=== PATIENT | female | born 1970 | race American Indian/Alaskan Native ===

== ENCOUNTER 2021-02-17 12:57 | Emergency (ER) | payer SELFPAY ==
[2021-02-17 13:10] VITALS: BP 129/89
--- NOTE | 2021-02-17 13:14 | Event Note ---
ED Screening Note Date of service: 02/17/21 Time: 13:14 ED Screening Note: Patient complains of chest pain x2 days Has a pacemaker in place States past history of diabetes This initial assessment/diagnostic orders/clinical plan/treatment(s) is/are subject to change based on patients health status, clinical progression and re- assessment by fellow clinical providers in the ED. Further treatment and workup at subsequent clinical providers discretion. Patient/guardian urged not to elope from the ED as their condition may be serious if not clinically assessed and managed. Initial orders include: Labs EKG Chest x-ray
--- NOTE | 2021-02-17 13:53 | XRay Report ---
CHEST 2 VIEWS INDICATION: chest pain. COMPARISON: None FINDINGS: Support devices: 2-lead pacemaker device appears in good position. Heart: Within normal limits. Lungs/pleura: No acute air space or interstitial disease. No pneumothorax. Additional findings: No obvious bony abnormality on x-ray. IMPRESSION: No acute findings. Signer Name: Kevin Jorge Jr, MD Signed: 02/17/2021 1:49 PM Workstation Name: [id number]
[2021-02-17 14:37] LABS: Basophils % (Auto) 0.7 % (0.0-1.8); Eosinophils # (Auto) 0.2 K/mm3 (0.0-0.4); Hematocrit 34.4 % (30.3-42.9); Hemoglobin 11.8 gm/dl (10.1-14.3); Lymphocytes # (Auto) 1.7 K/mm3 (1.2-5.4); Lymphocytes % (Auto) 42.4 % (13.4-35.0); Mean Corpuscular HGB Conc 34 % (30-34); Mean Corpuscular Volume 89 fl (79-97); Monocytes # (Auto) 0.2 K/mm3 (0.0-0.8); Monocytes % (Auto) 5.4 % (0.0-7.3); Platelet Count 272 K/mm3 (140-440); Red Blood Count 3.89 M/mm3 (3.65-5.03)
[2021-02-17 14:56] LABS: Alanine Aminotransferase 20 units/L (7-56); Albumin 4.2 g/dL (3.9-5); Blood Urea Nitrogen 12 mg/dL (7-17); Hemolysis Index 12
[2021-02-17 15:11] LABS: BUN/Creatinine Ratio 24
--- NOTE | 2021-02-17 17:21 | Electrocardiograph Report ---
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
== END 2021-02-17 21:15 | disposition left against medical advice (07) ==
LOC: ED 12:57
DX: R07.89 Other chest pain (principal); Z53.21 Procedure and treatment not carried out due to patient leaving prior to being seen by health care provider
CPT/HCPCS: 36415; 71046; 80053; 84484; 85025; 93005

== ENCOUNTER 2021-03-14 11:47 | Emergency (ER) | payer SELFPAY ==
[2021-03-14 12:41] VITALS: BP 136/74
--- NOTE | 2021-03-14 13:02 | Event Note ---
ED Screening Note Date of service: 03/14/21 Time: 13:00 ED Screening Note: Patient presents today with complaints of left-sided chest pain. Patient states that she has been having this chest pain for "a while". He states that she was seen here for this chest pain in the past but did not follow-up. She did had a pacemaker placed last year due to sinus bradycardia. Of [place] or coronary artery disease. She states that she had a heart cath in 2011 and it was normal. She has diabetes but it diet controlled. She also has sleep apnea and she is status post gastric sleeve. She also has a history of anxiety and depression. This initial assessment/diagnostic orders/clinical plan/treatment(s) is/are subject to change based on patients health status, clinical progression and re- assessment by fellow clinical providers in the ED. Further treatment and workup at subsequent clinical providers discretion. Patient/guardian urged not to elope from the ED as their condition may be serious if not clinically assessed and managed. Initial orders include: Cardiac work-up
--- NOTE | 2021-03-14 13:52 | XRay Report ---
CHEST 2 VIEWS INDICATION / CLINICAL INFORMATION: Chest Pain. FINDINGS: SUPPORT DEVICES: None. HEART / MEDIASTINUM: No significant abnormality. LUNGS / PLEURA: No significant pulmonary or pleural abnormality. No pneumothorax. ADDITIONAL FINDINGS: No significant additional findings. IMPRESSION: 1. No acute findings. Signer Name: Mikey Swift MD Signed: 03/14/2021 1:47 PM Workstation Name: [id number]
[2021-03-14 14:01] LABS: Alanine Aminotransferase 16 units/L (7-56); Albumin 4.1 g/dL (3.9-5); Basophils % (Auto) 0.7 % (0.0-1.8); Blood Urea Nitrogen 11 mg/dL (7-17); Eosinophils # (Auto) 0.2 K/mm3 (0.0-0.4); Eosinophils % (Auto) 3.7 % (0.0-4.3); Hematocrit 36.5 % (30.3-42.9); Hemoglobin 12.4 gm/dl (10.1-14.3); Hemolysis Index 4; Lymphocytes # (Auto) 1.4 K/mm3 (1.2-5.4); Lymphocytes % (Auto) 33.9 % (13.4-35.0); Mean Corpuscular HGB Conc 34 % (30-34); Mean Corpuscular Volume 90 fl (79-97); Monocytes # (Auto) 0.3 K/mm3 (0.0-0.8); Monocytes % (Auto) 7.6 % (0.0-7.3); Platelet Count 296 K/mm3 (140-440); Red Blood Count 4.08 M/mm3 (3.65-5.03)
[2021-03-14 14:07] LABS: BUN/Creatinine Ratio 16
[2021-03-14 14:12] LABS: INR 1.06 (0.87-1.13)
--- NOTE | 2021-03-14 17:38 | Emergency Department Report ---
ED General Adult HPI - General Chief complaint: Chest Pain Stated complaint: NOT FEELING WELL Time Seen by Provider: 03/14/21 16:57 Source: patient Mode of arrival: Ambulatory Limitations: No Limitations - History of Present Illness Initial comments: Patient is a 51-year-old female presents emergency room with complaints of muscle cramping to her left chest that has been ongoing for a year. She states that she has had the symptoms since she had a pacemaker placed. She denies any complications with her pacemaker. She denies any palpitations, fever, cough, nausea, vomiting, diarrhea, shortness of breath, leg swelling, hemoptysis, pleuritic chest pain, syncope. She states that her family recently became homeless which has been causing some anxiety. She denies any SI or HI. - Related Data Previous Rx's Medication Instructions Recorded Last Taken Type Naproxen [EC-Naprosyn] 500 mg PO BID PRN #14 tablet. 03/14/21 Unknown Rx methOCARBAMOL [Robaxin TAB] 500 mg PO BID PRN #14 tab 03/14/21 Unknown Rx Allergies Allergy/AdvReac Type Severity Reaction Status Date / Time chocolate flavor AdvReac Rash Verified 03/14/21 12:41 ED Review of Systems ROS: Stated complaint: NOT FEELING WELL Other details as noted in HPI Comment: All other systems reviewed and negative ED Past Medical Hx - Past Medical History Hx CVA: Yes (memory loss) Hx Arthritis: Yes Additional medical history: pacemaker, sleep apnea, anxiety (been admitted to psych facilities), neuropathy - Surgical History Additional Surgical History: GB, hyst - Social History Smoking Status: Never Smoker Substance Use Type: None - Medications Home Medications: Home Medications Medication Instructions Recorded Confirmed Last Taken Type Naproxen [EC-Naprosyn] 500 mg PO BID PRN #14 tablet. 03/14/21 Unknown Rx methOCARBAMOL [Robaxin TAB] 500 mg PO BID PRN #14 tab 03/14/21 Unknown Rx ED Physical Exam - General Limitations: No Limitations General appearance: alert, in no apparent distress - Head Head exam: Present: atraumatic, normocephalic - Eye Eye exam: Present: normal appearance - ENT ENT exam: Present: mucous membranes moist - Respiratory Respiratory exam: Present: normal lung sounds bilaterally, other (healed surgical incision, no signs of infection). Absent: respiratory distress, wheezes, rales, rhonchi, stridor, chest wall tenderness, accessory muscle use, decreased breath sounds, prolonged expiratory - Cardiovascular Cardiovascular Exam: Present: regular rate, normal rhythm, normal heart sounds. Absent: systolic murmur, diastolic murmur, rubs, gallop - Neurological Exam Neurological exam: Present: alert, oriented X3 - Psychiatric Psychiatric exam: Present: normal affect, normal mood - Skin Skin exam: Present: warm, dry, intact ED Course Vital Signs 03/14/21 03/14/21 12:39 18:47 Temperature 98.6 F Pulse Rate 87 84 Respiratory 18 18 Rate Blood Pressure 136/74 O2 Sat by Pulse 99 100 Oximetry ED Medical Decision Making - Lab Data Result diagrams: 03/14/21 13:20 03/14/21 13:20 Lab Results 03/14/21 03/14/21 03/14/21 Range/Units 13:20 13:20 13:20 WBC 4.3 L (4.5-11.0) K/mm3 RBC 4.08 (3.65-5.03) M/mm3 Hgb 12.4 (10.1-14.3) gm/dl Hct 36.5 (30.3-42.9) % MCV 90 (79-97) fl MCH 30 (28-32) pg MCHC 34 (30-34) % RDW 13.0 L (13.2-15.2) % Plt Count 296 (140-440) K/mm3 Lymph % (Auto) 33.9 (13.4-35.0) % [place] % (Auto) 7.6 H (0.0-7.3) % Eos % (Auto) 3.7 (0.0-4.3) % Baso % (Auto) 0.7 (0.0-1.8) % Lymph # (Auto) 1.4 (1.2-5.4) K/mm3 [place] # (Auto) 0.3 (0.0-0.8) K/mm3 Eos # (Auto) 0.2 (0.0-0.4) K/mm3 Baso # (Auto) 0.0 (0.0-0.1) K/mm3 Seg Neutrophils % 54.1 (40.0-70.0) % Seg Neutrophils # 2.3 (1.8-7.7) K/mm3 PT 13.6 (12.2-14.9) Sec. INR 1.06 (0.87-1.13) APTT 28.0 (24.2-36.6) Sec. Sodium 139 (137-145) mmol/L Potassium 3.5 L (3.6-5.0) mmol/L Chloride 101.7 (98-107) mmol/L Carbon Dioxide 29 (22-30) mmol/L Anion Gap 12 mmol/L BUN 11 (7-17) mg/dL Creatinine 0.7 (0.6-1.2) mg/dL Estimated GFR > 60 ml/min BUN/Creatinine Ratio 16 % Glucose 87 (65-100) mg/dL Calcium 9.0 (8.4-10.2) mg/dL Total Bilirubin 1.10 (0.1-1.2) mg/dL AST 25 (5-40) units/L ALT 16 (7-56) units/L Alkaline Phosphatase 82 (35-129) units/L Troponin T < 0.010 (0.00-0.029) ng/mL Total Protein 7.6 (6.3-8.2) g/dL Albumin 4.1 (3.9-5) g/dL Albumin/Globulin Ratio 1.2 % Lipase 29 (13-60) units/L /09/24 Range/Units 16:45 WBC (4.5-11.0) K/mm3 RBC (3.65-5.03) M/mm3 Hgb (10.1-14.3) gm/dl Hct (30.3-42.9) % MCV (79-97) fl MCH (28-32) pg MCHC (30-34) % RDW (13.2-15.2) % Plt Count (140-440) K/mm3 Lymph % (Auto) (13.4-35.0) % [place] % (Auto) (0.0-7.3) % Eos % (Auto) (0.0-4.3) % Baso % (Auto) (0.0-1.8) % Lymph # (Auto) (1.2-5.4) K/mm3 [place] # (Auto) (0.0-0.8) K/mm3 Eos # (Auto) (0.0-0.4) K/mm3 Baso # (Auto) (0.0-0.1) K/mm3 Seg Neutrophils % (40.0-70.0) % Seg Neutrophils # (1.8-7.7) K/mm3 PT (12.2-14.9) Sec. INR (0.87-1.13) APTT (24.2-36.6) Sec. Sodium (137-145) mmol/L Potassium (3.6-5.0) mmol/L Chloride (98-107) mmol/L Carbon Dioxide (22-30) mmol/L Anion Gap mmol/L BUN (7-17) mg/dL Creatinine (0.6-1.2) mg/dL Estimated GFR ml/min BUN/Creatinine Ratio % Glucose (65-100) mg/dL Calcium (8.4-10.2) mg/dL Total Bilirubin (0.1-1.2) mg/dL AST (5-40) units/L ALT (7-56) units/L Alkaline Phosphatase (35-129) units/L Troponin T < 0.010 (0.00-0.029) ng/mL Total Protein (6.3-8.2) g/dL Albumin (3.9-5) g/dL Albumin/Globulin Ratio % Lipase (13-60) units/L - EKG Data EKG shows normal: sinus rhythm, axis, intervals, QRS complexes, ST-T waves Rate: normal - Radiology Data Radiology results: report reviewed Ordering Physician: DAISHA FELDER Date of Service: 03/14/21 Procedure(s): XR chest routine 2V Accession Number(s): [id number] cc: DAISHA FELDER Fluoro Time In Minutes: CHEST 2 VIEWS INDICATION / CLINICAL INFORMATION: Chest Pain. FINDINGS: SUPPORT DEVICES: None. HEART / MEDIASTINUM: No significant abnormality. LUNGS / PLEURA: No significant pulmonary or pleural abnormality. No pneumothorax. ADDITIONAL FINDINGS: No significant additional findings. IMPRESSION: 1. No acute findings. Signer Name: Mikey Swift MD Signed: 03/14/2021 1:47 PM Workstation Name: [id number] Transcribed By: BC Dictated By: Mikey Swift MD Electronically Authenticated By: Mikey Swift MD Signed Date/Time: 03/14/211346 DD/ 46 TD/TT: - Medical Decision Making Patient is a 51-year-old female presents emergency room with complaints of muscle cramping to her left chest that has been ongoing for a year. She states that she has had the symptoms since she had a pacemaker placed. She denies any complications with her pacemaker. She denies any palpitations, fever, cough, nausea, vomiting, diarrhea, shortness of breath, leg swelling, hemoptysis, pl euritic chest pain, syncope. She states that her family recently became homeless which has been causing some anxiety. She denies any SI or HI. Vitals are stable. EKG is within normal limits. Labs are stable. Troponin is negative x2. Chest x-ray: 1. No acute findings. Heart score is 2, symptoms have been ongoing for a year, she describes it as muscle cramping, do not suspect ACS at this time. Charge nurse was able to place patient in a intermediate, she states that she is feeling much better and much more relieved. Patient will be referred to outpatient cardiology. Patient given prescription for naproxen and Robaxin. Advised patient please take medication as prescribed as needed. follow up with a primary care doctor. follow up with a postdoctoral fellow. follow up with the [facility]. return to the emergency room for any new or worsening symptoms. Critical care attestation.: If time is entered above; I have spent that time in minutes in the direct care of this critically ill patient, excluding procedure time. ED Disposition Clinical Impression: Chronic chest pain, Anxiety Disposition: DC-01 TO HOME OR SELFCARE Is pt being admited?: No Does the pt Need Aspirin: No Condition: Stable Instructions: Nonspecific Chest Pain, Adult, Managing Anxiety, Adult Additional Instructions: please take medication as prescribed as needed. follow up with a primary care do ctor. follow up with a postdoctoral fellow. follow up with the [facility]. return to the emergency room for any new or worsening symptoms. Prescriptions: Naproxen [EC-Naprosyn] 500 mg PO BID PRN #14 tablet.dr MAE Reason: pain methOCARBAMOL [Robaxin TAB] 500 mg PO BID PRN #14 tab PRN Reason: pain Referrals: FABRIZIO ARGUELLO MD [Primary Care Provider] - 2-3 Days [facility] [Provider Group] - 2-3 Days ANJUM BURLESON MD [Staff Physician] [facility]3 Days Time of Disposition: 17:38 Print Language: FAROESE Heart Score - HEART Score History: Slightly suspicious EKG: Normal Age: 45-65 Risk factors: 1-2 risk factors Troponin: < normal limit HEART Score: 2 - EKG Read Time Time EKG Completed: 13:00 EKG Read Time: 13:10
--- NOTE | 2021-03-16 11:49 | Electrocardiograph Report ---
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
== END 2021-03-14 18:47 | disposition home or self-care (01) ==
LOC: ED 11:47
DX: F41.9 Anxiety disorder, unspecified (principal); R07.89 Other chest pain; M19.90 Unspecified osteoarthritis, unspecified site; Z79.899 Other long term (current) drug therapy; Z91.018 Allergy to other foods; Z98.890 Other specified postprocedural states; Z86.73 Personal history of transient ischemic attack (TIA), and cerebral infarction without residual deficits
CPT/HCPCS: 36415; 71046; 80053; 83690; 84484; 85025; 85610; 85730; 93005

== ENCOUNTER 2021-05-22 16:22 | Emergency (ER) | payer SELFPAY ==
--- NOTE | 2021-05-22 17:41 | Emergency Department Report ---
ED Chest Pain HPI - General Chief Complaint: Dyspnea/Respdistress Stated Complaint: HEART PAIN (PACEMAKER)LT/SHOULDER Time Seen by Provider: 05/22/21 17:09 Source: patient Mode of arrival: Ambulatory Limitations: No Limitations - History of Present Illness Initial Comments: 51-year-old female, history of pacemaker placement, CVA with memory loss as only residual deficit, denies presents to ED with chest pain and leg swelling x1 week. Patient states she has swelling in bilateral lower extremities, left greater than right. She also reports pain to both lower extremities. Patient also reports some sharp chest pain, left-sided, intermittent. She denies any aggravating or alleviating factors. She denies any shortness of breath. Patient denies any tobacco or drug use. MD Complaint: chest pain -: week(s) (1) Onset: during rest Pain Location: left chest Pain Radiation: none Severity: moderate Severity scale (0 -10): 5 Quality: sharp Improves With: nothing Worsens With: nothing re: denies: nausea, vomting, diaphoresis, dyspnea Other Symptoms: leg swelling. denies: cough, fever - Related Data Previous Rx's Medication Instructions Recorded Last Taken Type Naproxen [EC-Naprosyn] 500 mg PO BID PRN #14 tablet. 03/14/21 Unknown Rx methOCARBAMOL [Robaxin TAB] 500 mg PO BID PRN #14 tab 03/14/21 Unknown Rx Furosemide [Lasix] 20 mg PO QDAY 5 Days #5 tablet 05/22/21 Unknown Rx Allergies Allergy/AdvReac Type Severity Reaction Status Date / Time chocolate flavor AdvReac Rash Verified 05/22/21 18:13 Heart Score - HEART Score History: Slightly suspicious EKG: Normal Age: 45-65 Risk factors: 1-2 risk factors Troponin: < normal limit HEART Score: 2 - EKG Read Time Time EKG Completed: 16:35 EKG Read Time: 17:09 ED Review of Systems ROS: Stated complaint: HEART PAIN (PACEMAKER)LT/SHOULDER Other details as noted in HPI Comment: All other systems reviewed and negative Constitutional: denies: chills, fever Respiratory: denies: cough, shortness of breath Cardiovascular: chest pain, edema ED Past Medical Hx - Past Medical History Previous Medical History?: Yes Hx CVA: Yes (memory loss) Hx Arthritis: Yes Additional medical history: pacemaker, sleep apnea, anxiety (been admitted to psych facilities), neuropathy - Surgical History Past Surgical History?: Yes Additional Surgical History: GB, hyst - Social History Smoking Status: Never Smoker Substance Use Type: None - Medications Home Medications: Home Medications Medication Instructions Recorded Confirmed Last Taken Type Naproxen [EC-Naprosyn] 500 mg PO BID PRN #14 tablet. 03/14/21 Unknown Rx methOCARBAMOL [Robaxin TAB] 500 mg PO BID PRN #14 tab 03/14/21 Unknown Rx Furosemide [Lasix] 20 mg PO QDAY 5 Days #5 tablet 05/22/21 Unknown Rx ED Physical Exam - General Limitations: No Limitations General appearance: alert, in no apparent distress - Head Head exam: Present: atraumatic, normocephalic - Eye Eye exam: Present: normal appearance, EOMI - ENT ENT exam: Present: mucous membranes moist - Neck Neck exam: Present: normal inspection - Respiratory Respiratory exam: Present: normal lung sounds bilaterally. Absent: respiratory distress - Cardiovascular Cardiovascular Exam: Present: regular rate, normal rhythm - GI/Abdominal GI/Abdominal exam: Present: soft. Absent: distended, tenderness - Extremities Exam Extremities exam: Present: other (1+ edema, nonpitting, bilateral lower legs) - Neurological Exam Neurological exam: Present: alert, oriented X3 - Psychiatric Psychiatric exam: Present: normal affect, normal mood - Skin Skin exam: Present: warm, dry, intact, normal color ED Course Vital Signs 05/22/21 05/22/21 05/22/21 16:43 17:04 17:15 Temperature 99.1 F Pulse Rate 69 60 Respiratory 20 13 Rate Blood Pressure 135/84 Blood Pressure 141/59 [Right] O2 Sat by Pulse 98 100 98 Oximetry 05/22/21 05/22/21 05/22/21 17:31 17:45 18:31 Temperature Pulse Rate 60 60 60 Respiratory 15 22 16 Rate Blood Pressure 140/62 121/68 128/67 Blood Pressure [Right] O2 Sat by Pulse 100 100 100 Oximetry 05/22/21 05/22/21 05/22/21 18:45 19:07 19:50 Temperature 98.2 F Pulse Rate 74 76 Respiratory 18 18 Rate Blood Pressure 121/56 121/56 Blood Pressure 121/65 [Right] O2 Sat by Pulse 95 96 97 Oximetry ED Medical Decision Making - Lab Data Result diagrams: 05/22/21 17:44 05/22/21 17:44 - EKG Data -: EKG Interpreted by Mi EKG shows normal: sinus rhythm, axis, intervals, QRS complexes, ST-T waves Rate: normal - EKG Data Interpretation: no acute changes - Radiology Data Radiology results: report reviewed, image reviewed - Medical Decision Making 51-year-old female presents to ED with bilateral lower extremity swelling and chest pain x1 week. Labs are unremarkable, including D-dimer which is within normal limits. EKG is normal. Troponin is negative. Chest x-ray is unremarkable. Vital signs are stable. Patient will be discharged at this time with prescription for Lasix. Patient information will be sent to [facility] for urgent cardiology follow-up. Return precautions given. - Differential Diagnosis ACS, DVT, CHF Critical care attestation.: If time is entered above; I have spent that time in minutes in the direct care of this critically ill patient, excluding procedure time. ED Disposition Clinical Impression: Chest pain, Bilateral lower extremity edema Disposition: TO HOME OR SELFCARE Is pt being admited?: No Condition: Stable Instructions: Nonspecific Chest Pain, Adult, Peripheral Edema Prescriptions: Furosemide [Lasix] 20 mg PO QDAY 5 Days #5 tablet Referrals: WILL VANEGAS MD [Staff Physician] - 3-5 Days [facility] [Provider Group] - 3-5 Days Time of Disposition: 19:08
[2021-05-22 17:59] LABS: Basophils % (Auto) 0.5 % (0.0-1.8); Eosinophils # (Auto) 0.2 K/mm3 (0.0-0.4); Eosinophils % (Auto) 3.5 % (0.0-4.3); Hematocrit 33.1 % (30.3-42.9); Hemoglobin 11.3 gm/dl (10.1-14.3); Lymphocytes # (Auto) 1.2 K/mm3 (1.2-5.4); Lymphocytes % (Auto) 27.9 % (13.4-35.0); Mean Corpuscular HGB Conc 34 % (30-34); Mean Corpuscular Volume 89 fl (79-97); Monocytes # (Auto) 0.3 K/mm3 (0.0-0.8); Monocytes % (Auto) 6.9 % (0.0-7.3); Platelet Count 221 K/mm3 (140-440); Red Blood Count 3.72 M/mm3 (3.65-5.03); Red Cell Distribution Width 13.1 % (13.2-15.2)
[2021-05-22 18:18] LABS: INR 1.06 (0.87-1.13)
--- NOTE | 2021-05-22 18:18 | XRay Report ---
CHEST 1 VIEW INDICATION: chest pain. COMPARISON: 03/14/2021 FINDINGS: Support devices: Cardiac leads project in expected position. Heart: Normal. Lungs/Pleura: No acute pulmonary or pleural findings. IMPRESSION: 1. No acute findings. Signer Name: Rufus Campos MD Signed: 05/22/2021 6:13 PM Workstation Name: [id number]
[2021-05-22 18:19] LABS: Partial Thromboplastin Time 26.7 Sec. (24.2-36.6)
[2021-05-22 18:20] LABS: Alanine Aminotransferase 13 units/L (7-56); Albumin 4.3 g/dL (3.9-5); Blood Urea Nitrogen 17 mg/dL (7-17); Calcium 9.3 mg/dL (8.4-10.2); Hemolysis Index 5
[2021-05-22 18:23] LABS: BUN/Creatinine Ratio 28; Bilirubin,Direct < 0.2 mg/dL (0-0.2)
[2021-05-22 19:55] VITALS: BP 121/65
--- NOTE | 2021-05-23 10:21 | Electrocardiograph Report ---
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
== END 2021-05-22 19:50 | disposition home or self-care (01) ==
LOC: ED 16:22
DX: R07.89 Other chest pain (principal); R60.0 Localized edema
CPT/HCPCS: 36415; 71045; 80048; 80076; 83880; 84484; 85025; 85379; 85610; 85730; 93005; 99283

== ENCOUNTER 2021-08-31 15:13 | Emergency (ER) | payer MEDICAID ==
[2021-08-31] MEDS ORDERED: MECLIZINE 25 MG TAB PO ONE (17:04)
--- NOTE | 2021-08-31 17:10 | Emergency Department Report ---
HPI - General Chief Complaint: Dizziness Time Seen by Provider: 08/31/21 16:48 - HPI HPI: Room 33 Patient 52-year-old female present with a chief complaint of dizziness. Patient states she has had "dizzy spells" intermittently since January. Patient states he has an approximately once a month. Patient states she also always feels as though her heart is racing during these episodes. The patient stated during the interview she felt dizzy and she felt as though her heart racing but she was not tachycardic during exam. Patient admits to nausea with her dizziness and states her episodes usually last approximately 1 hour. ED Past Medical Hx - Past Medical History Hx CVA: Yes (memory loss) Hx Arthritis: Yes Hx Psychiatric Treatment: No (Hx of anxiety with Rx (ran out)) Additional medical history: pacemaker, sleep apnea, anxiety (been admitted to psych facilities), neuropathy - Surgical History Past Surgical History?: No Additional Surgical History: GB, hyst, - Family History Family history: no significant - Social History Smoking Status: Current Some Day Smoker Substance Use Type: None (Denies illicit drug use), Alcohol (Occasional) - Medications Home Medications: Home Medications Medication Instructions Recorded Confirmed Last Taken Type Naproxen [EC-Naprosyn] 500 mg PO BID PRN #14 tablet. 03/14/21 Unknown Rx methOCARBAMOL [Robaxin TAB] 500 mg PO BID PRN #14 tab 03/14/21 Unknown Rx Furosemide [Lasix] 20 mg PO QDAY 5 Days #5 tablet 05/22/21 Unknown Rx Meclizine [Antivert] 25 mg PO TID PRN #20 tablet 08/31/21 Unknown Rx hydrOXYzine PAMOATE [Vistaril] 25 mg PO Q6HR PRN #10 capsule 08/31/21 Unknown Rx ED Review of Systems ROS: Stated complaint: DIZZY Other details as noted in HPI Constitutional: malaise Eyes: denies: eye pain ENT: denies: throat pain Respiratory: denies: shortness of breath Cardiovascular: chest pain, palpitations Endocrine: no symptoms reported Gastrointestinal: nausea. denies: vomiting Musculoskeletal: denies: back pain Neurological: vertigo. denies: headache Physical Exam - Physical Exam Vital Signs: Vital Signs 08/31/21 08/31/21 15:23 16:02 Temperature 97.8 F 98.0 F Pulse Rate 78 60 Respiratory 18 18 Rate Blood Pressure 141/77 116/63 [Left] O2 Sat by Pulse 99 100 Oximetry Physical Exam: GENERAL: The patient is well-developed well-nourished female sitting in chair not appearing to be in acute distress. [] HEENT: Normocephalic. Atraumatic. Extraocular motions are intact. Patient has moist mucous membranes. No nystagmus NECK: Supple. Trachea midline CHEST/LUNGS: Clear to auscultation. There is no respiratory distress noted. HEART/CARDIOVASCULAR: Regular. There is no tachycardia. There is no gallop rub or murmur. ABDOMEN: Abdomen is soft, nontender. Patient has normal bowel sounds. There is no abdominal distention. SKIN: There is no rash. There is no edema. There is no diaphoresis. NEURO: The patient is awake, alert, and oriented. The patient is cooperative. The patient has no focal neurologic deficits. The patient has normal speech. Cranial nerves II through XII grossly intact. GCS 15. No dysmetria noted with [id number] bilaterally MUSCULOSKELETAL: There is no evidence of acute injury. ED Course Vital Signs 08/31/21 08/31/21 15:23 16:02 Temperature 97.8 F 98.0 F Pulse Rate 78 60 Respiratory 18 18 Rate Blood Pressure 141/77 116/63 [Left] O2 Sat by Pulse 99 100 Oximetry ED Medical Decision Making - Lab Data Result diagrams: 08/31/21 17:25 08/31/21 17:25 Laboratory Tests 08/31/21 08/31/21 08/31/21 17:25 17:25 17:25 WBC 5.1 RBC 4.00 Hgb 12.0 Hct 36.0 MCV 90 MCH 30 MCHC 33 RDW 13.1 L Plt Count 267 Lymph % (Auto) 18.0 [place] % (Auto) 5.1 Eos % (Auto) 2.6 Baso % (Auto) 0.6 Lymph # (Auto) 0.9 L [place] # (Auto) 0.3 Eos # (Auto) 0.1 Baso # (Auto) 0.0 Seg Neutrophils % 73.7 H Seg Neutrophils # 3.8 PT 13.5 INR 0.93 D-Dimer Sodium 145 Potassium 3.9 Chloride 107.3 H Carbon Dioxide 25 Anion Gap 17 BUN 12 Creatinine 0.6 Estimated GFR > 60 BUN/Creatinine Ratio 20 Glucose 113 H Calcium 9.3 Total Bilirubin 0.70 AST 23 ALT 18 Alkaline Phosphatase 81 Total Creatine Kinase 370 H CK-MB (CK-2) 7.1 H CK-MB (CK-2) Rel Index 1.9 Troponin T < 0.010 Total Protein 7.4 Albumin 4.1 Albumin/Globulin Ratio 1.2 TSH Free T4 Urine Color Urine Turbidity Urine pH Ur Specific [place] Urine Protein Urine Glucose (UA) Urine Ketones Urine Blood Urine Nitrite Urine Bilirubin Urine Urobilinogen Ur Leukocyte Esterase Urine WBC (Auto) Urine RBC (Auto) U Epithel Cells (Auto) Urine Mucus Urine Opiates Screen Urine Methadone Screen Ur Barbiturates Screen Ur Phencyclidine Scrn Ur Amphetamines Screen U Benzodiazepines Scrn Urine Cocaine Screen U Marijuana (THC) Screen Drugs of Abuse Note Plasma/Serum Alcohol 08/31/21 08/31/21 08/31/21 17:25 17:25 18:51 WBC RBC Hgb Hct MCV MCH MCHC RDW Plt Count Lymph % (Auto) [place] % (Auto) Eos % (Auto) Baso % (Auto) Lymph # (Auto) [place] # (Auto) Eos # (Auto) Baso # (Auto) Seg Neutrophils % Seg Neutrophils # PT INR D-Dimer Sodium Potassium Chloride Carbon Dioxide Anion Gap BUN Creatinine Estimated GFR BUN/Creatinine Ratio Glucose Calcium Total Bilirubin AST ALT Alkaline Phosphatase Total Creatine Kinase CK-MB (CK-2) CK-MB (CK-2) Rel Index Troponin T Total Protein Albumin Albumin/Globulin Ratio TSH 0.415 Free T4 1.13 Urine Color Yellow Urine Turbidity Clear Urine pH 7.0 Ur Specific [place] 1.014 Urine Protein <15 mg/dl Urine Glucose (UA) Neg Urine Ketones Neg Urine Blood Neg Urine Nitrite Neg Urine Bilirubin Neg Urine Urobilinogen 4.0 Ur Leukocyte Esterase Tr Urine WBC (Auto) 2.0 Urine RBC (Auto) 1.0 U Epithel Cells (Auto) < 1.0 Urine Mucus Few Urine Opiates Screen Urine Methadone Screen Ur Barbiturates Screen Ur Phencyclidine Scrn Ur Amphetamines Screen U Benzodiazepines Scrn Urine Cocaine Screen U Marijuana (THC) Screen Drugs of Abuse Note Plasma/Serum Alcohol < 0.01 08/31/21 08/31/21 18:51 19:38 WBC RBC Hgb Hct MCV MCH MCHC RDW Plt Count Lymph % (Auto) [place] % (Auto) Eos % (Auto) Baso % (Auto) Lymph # (Auto) [place] # (Auto) Eos # (Auto) Baso # (Auto) Seg Neutrophils % Seg Neutrophils # PT INR D-Dimer 231.4 Sodium Potassium Chloride Carbon Dioxide Anion Gap BUN Creatinine Estimated GFR BUN/Creatinine Ratio Glucose Calcium Total Bilirubin AST ALT Alkaline Phosphatase Total Creatine Kinase CK-MB (CK-2) CK-MB (CK-2) Rel Index Troponin T Total Protein Albumin Albumin/Globulin Ratio TSH Free T4 Urine Color Urine Turbidity Urine pH Ur Specific [place] Urine Protein Urine Glucose (UA) Urine Ketones Urine Blood Urine Nitrite Urine Bilirubin Urine Urobilinogen Ur Leukocyte Esterase Urine WBC (Auto) Urine RBC (Auto) U Epithel Cells (Auto) Urine Mucus Urine Opiates Screen Negative Urine Methadone Screen Negative Ur Barbiturates Screen Negative Ur Phencyclidine Scrn Negative Ur Amphetamines Screen Negative U Benzodiazepines Scrn Negative Urine Cocaine Screen Negative U Marijuana (THC) Screen Positive Drugs of Abuse Note Disclamer Plasma/Serum Alcohol - EKG Data -: EKG Interpreted by [place] EKG shows normal: sinus rhythm Rate: normal - EKG Data When compared to previous EKG there are: no significant change, previous EKG unavailable Interpretation: unchanged when compared t (No significant changes when compared to previous EKG dated 05/22/2021), nonspecific ST-T wave christa (T wave inversion lead III) - Radiology Data Radiology results: report reviewed (CT head), image reviewed (CT head) [facility] [address] [id number] Cat Scan Report Signed Patient: BETTE WOODARD MR#: [id number] : 1970 Acct:[id number] Age/Sex: 51 / F ADM Date: 08/31/21 Loc: ED Attending Dr: Ordering Physician: COURTNEY DUMONT MD Date of Service: 08/31/21 Procedure(s): CT head/brain wo con Accession Number(s): [id number] cc: COURTNEY DUMONT MD CT HEAD WITHOUT CONTRAST INDICATION / CLINICAL INFORMATION: Dizziness. TECHNIQUE: All CT scans at this location are performed using CT dose reduction for ALARA by means of automated exposure control. COMPARISON: None available. FINDINGS: BRAIN PARENCHYMA: No acute intracranial hemorrhage. No evidence of recent infarct. No mass effect or midline shift. VENTRICULAR SYSTEM/EXTRA-AXIAL SPACES: Ventricles are normal for age. No extra-axial fluid collection. ORBITS: Normal as visualized. SKELETAL SYSTEM/SOFT TISSUES: Normal bones and soft tissues. PARANASAL SINUSES/MASTOID AIR CELLS: No significant abnormality. ADDITIONAL FINDINGS: None. IMPRESSION: 1. No acute intracranial abnormality. Signer Name: Krysta Posada MD Signed: 08/31/2021 6:24 PM Workstation Name: [id number] Transcribed By: JS Dictated By: KRYSTA POSADA MD Electronically Authenti cated By: KRYSTA POSADA MD Signed Date/Time: 08/31/211823 DD/ 21 TD/TT: Print Cancel - Differential Diagnosis Vertigo, anxiety, intracranial mass, ICH, dehydration Critical care attestation.: If time is entered above; I have spent that time in minutes in the direct care of this critically ill patient, excluding procedure time. ED Disposition Clinical Impression: Vertigo, Anxiety Disposition: 01 HOME / SELF CARE / HOMELESS Is pt being admited?: No Does the pt Need Aspirin: No Condition: Stable Instructions: Managing Anxiety, Adult, Dizziness, Noex-an-Eava Additional Instructions: Return to the emergency department should you develop worsening symptoms, inability to tolerate food or liquids, high fever or any other concerns Prescriptions: Meclizine [Antivert] 25 mg PO TID PRN #20 tablet PRN Reason: Vertigo hydrOXYzine PAMOATE [Vistaril] 25 mg PO Q6HR PRN #10 capsule PRN Reason: Anxiety Referrals: PRIMARY CAREMD [Primary Care Provider] - 3-5 Days NICANOR JACKSON MD [Staff Physician] - 3-5 Days (Dr. Jackson is a neurologist. Please follow-up with him for further evaluation) FAYE MUÑOZ [Staff Physician] - 3-5 Days (Dr. Muñoz is a outreach analyst. Please follow-up with him for further evaluation) Time of Disposition: 20:15 Heart Score - HEART Score History: Slightly suspicious EKG: Non-specific Age: 45-65 Risk factors: 1-2 risk factors Troponin: < normal limit HEART Score: 3 - EKG Read Time Time EKG Completed: 19:02 EKG Read Time: 20:08
[2021-08-31 18:07] LABS: Basophils % (Auto) 0.6 % (0.0-1.8); Eosinophils # (Auto) 0.1 K/mm3 (0.0-0.4); Eosinophils % (Auto) 2.6 % (0.0-4.3); Lymphocytes # (Auto) 0.9 K/mm3 (1.2-5.4); Mean Corpuscular HGB Conc 33 % (30-34); Mean Corpuscular Volume 90 fl (79-97); Monocytes # (Auto) 0.3 K/mm3 (0.0-0.8); Monocytes % (Auto) 5.1 % (0.0-7.3); Platelet Count 267 K/mm3 (140-440); Red Cell Distribution Width 13.1 % (13.2-15.2)
[2021-08-31 18:18] LABS: INR 0.93 (0.87-1.13)
[2021-08-31 18:20] LABS: Alanine Aminotransferase 18 units/L (7-56); Albumin 4.1 g/dL (3.9-5); Blood Urea Nitrogen 12 mg/dL (7-17); Calcium 9.3 mg/dL (8.4-10.2); Creatine Kinase MB 7.1 ng/mL (0.0-4.0); Hemolysis Index 23
[2021-08-31 18:26] LABS: Free T4 (Free Thyroxine) 1.13 ng/dL (0.76-1.46)
--- NOTE | 2021-08-31 18:28 | Cat Scan Report ---
CT HEAD WITHOUT CONTRAST INDICATION / CLINICAL INFORMATION: Dizziness. TECHNIQUE: All CT scans at this location are performed using CT dose reduction for ALARA by means of automated exposure control. COMPARISON: None available. FINDINGS: BRAIN PARENCHYMA: No acute intracranial hemorrhage. No evidence of recent infarct. No mass effect or midline shift. VENTRICULAR SYSTEM/EXTRA-AXIAL SPACES: Ventricles are normal for age. No extra-axial fluid collection . ORBITS: Normal as visualized. SKELETAL SYSTEM/SOFT TISSUES: Normal bones and soft tissues. PARANASAL SINUSES/MASTOID AIR CELLS: No significant abnormality. ADDITIONAL FINDINGS: None. IMPRESSION: 1. No acute intracranial abnormality. Signer Name: Bryson Posada MD Signed: 08/31/2021 6:24 PM Workstation Name: [id number]
[2021-08-31 18:31] LABS: BUN/Creatinine Ratio 20
[2021-08-31 18:51] VITALS: BP 134/86
[2021-08-31 19:22] LABS: Bilirubin,Urine NEG (Negative); Blood,Urine NEG (Negative); Color,Urine Yellow (Yellow); Mucus,Urine FEW /HPF; Protein,Urine <15 mg/dL mg/dL (Negative)
[2021-08-31 19:28] LABS: Amphetamine Screen,Urine Negative; Benzodiazepines Screen,Urine Negative; Cocaine Screen,Urine Negative; Methadone Screen,Urine Negative; Opiate Screen,Urine Negative
[2021-08-31 19:48] LABS: Cannabinoid Screen,Urine Positive
--- NOTE | 2021-09-01 14:13 | Electrocardiograph Report ---
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
== END 2021-08-31 21:13 | disposition home or self-care (01) ==
LOC: ED 15:13
DX: R42 Dizziness and giddiness (principal); F41.9 Anxiety disorder, unspecified; F17.200 Nicotine dependence, unspecified, uncomplicated; Z79.899 Other long term (current) drug therapy; Z86.73 Personal history of transient ischemic attack (TIA), and cerebral infarction without residual deficits
CPT/HCPCS: 36415; 70450; 80053; 80307; 80320; 81001; 82550; 82553; 84439; 84443; 84484; 85025; 85379; 85610; 93005; 99284; G0480

== ENCOUNTER 2021-10-03 09:18 | Outpatient (CLI) | payer MEDICAID ==
--- NOTE | 2021-10-03 11:00 | XRay Report ---
CHEST 2 VIEWS INDICATION / CLINICAL INFORMATION: Preoperative evaluation, morbid obesity. COMPARISON: 05/22/2021. FINDINGS: SUPPORT DEVICES: Dual-lead cardiac pacemaker overlies the left chest, not significantly changed. HEART / MEDIASTINUM: No significant abnormality. LUNGS / PLEURA: No significant pulmonary or pleural abnormality. No pneumothorax. ADDITIONAL FINDINGS: No significant additional findings. IMPRESSION: 1. No acute findings. Signer Name: Keny Hernandez MD Signed: 10/03/2021 10:55 AM Workstation Name: [id number]
--- NOTE | 2021-10-03 11:07 | Fluoroscopy Report ---
Esophagram Indication: Morbid obesity, preoperative evaluation. Technique: Single and double contrast barium technique utilized to evaluate the esophagus. Findings: Initial nanny babysitter radiograph was performed. Small sample of thin barium was swallowed and no ev idence of aspiration was identified. Rapid sequence fluoroscopic evaluation the cervical esophagus wa s performed in the lateral and frontal projections. Patient was placed in the LPO position and double contrast fluoroscopic evaluation of the esophagus was performed. Swallowing was normal. No mucosal irregularity, mass, mass effect, or critical stenosis. There were no abnormal tertiary c ontractions as seen with dysmotility. No gastroesophageal reflux. Small intermittent hiatal hernia. Impression: Small intermittent hiatal hernia. Otherwise, unremarkable fluoroscopic esophagram study. Fluoroscopic time: 1.3 minutes Number of fluoroscopic images: 23 Signer Name: Keny Hernandez MD Signed: 10/03/2021 11:03 AM Workstation Name: [id number]
== END 2021-10-03 09:19 | disposition home or self-care (01) ==
LOC: FLUORO 09:18
PROVIDERS: ATTEND Surgery
DX: K44.9 Diaphragmatic hernia without obstruction or gangrene (principal); E66.01 Morbid (severe) obesity due to excess calories; E66.2 Morbid (severe) obesity with alveolar hypoventilation
CPT/HCPCS: 71046; 74220

== ENCOUNTER 2021-10-03 11:00 | Outpatient (CLI) | payer MEDICAID | END 2021-10-03 11:01 | disposition home or self-care (01) | LOC: SLR 11:00 | PROVIDERS: ATTEND Surgery | DX: G47.33 Obstructive sleep apnea (adult) (pediatric) (principal) | CPT/HCPCS: 95811 ==

== ENCOUNTER 2021-11-14 13:34 | Emergency (ER) | payer MEDICAID | END 2021-11-14 16:07 | disposition left against medical advice (07) | LOC: ED 13:34 | DX: R51.9 Headache, unspecified (principal); Z53.21 Procedure and treatment not carried out due to patient leaving prior to being seen by health care provider ==

== ENCOUNTER 2021-11-21 07:18 | Day surgery (SDC) | payer MEDICAID ==
[2021-11-21] MEDS ORDERED: SODIUM CHLORIDE 0.9% 1000 ML 1,000 ML ONE (07:58)
--- NOTE | 2021-11-21 08:35 | Anesthesia Day of Surgery ---
Anesthesia Day of Surgery - Day of Surgery Patient Examined: Yes Patient H&P Reviewed: Yes Patient is NPO: Yes
--- NOTE | 2021-11-21 08:36 | Discharge Summary ---
Providers - Providers Date of Admission: 11/21/2021 Date of discharge: 11/21/21 Attending physician: FAHAD COLINDRES MD Primary care physician: AUGUSTIN WALDEN MD Hospitalization Reason for admission: pre-op egd Condition: Good Procedures: egd with bx Hospital course: Pt presented for a pre-op EGD as part of planning for up coming bariatric surgery. Procedure was uneventful and pt recovered well and was discharged to home. Disposition: HOME / SELF CARE / HOMELESS Final Discharge Diagnosis (Prints w/discharge instructions): gerd, morbid obesity Core Measure Documentation - Palliative Care Palliative Care/ Comfort Measures: Not Applicable - Core Measures Any of the following diagnoses?: none Exam - Physical Exam Narrative exam: same as pre-op exam Plan Activity: advance as tolerated Diet: low carbohydrate Follow up with: AUGUSTIN WALDEN MD [Primary Care Provider] - 7 Days
--- NOTE | 2021-11-21 08:37 | Anesthesia Consultation ---
Anesthesia Consult and Med Hx Date of service: 11/21/21 - Airway Anesthetic Teeth Evaluation: Partials ROM Head & Neck: Adequate Mental/Hyoid Distance: Adequate Mallampati Class: Class III Intubation Access Assessment: Probably Good - Pre-Operative Health Status ASA Pre-Surgery Classification: ASA3 Proposed Anesthetic Plan: MAC - Pulmonary Hx Smoking: No Hx Asthma: Yes Hx Sleep Apnea: Yes - Cardiovascular System Hx Hypertension: No Hx Pacemaker: Yes - Gastrointestinal Hx Gastroesophageal Reflux Disease: Yes - Endocrine Hx Non-Insulin Dependent Diabetes: No - Hematic Hx Sickle Cell Disease: No - Other Systems Hx Obesity: Yes
[2021-11-21] MEDS ORDERED: propofoL 200 MG/20 ML VIAL IV ONE (10:21)
--- NOTE | 2021-11-21 10:39 | Operative Report ---
Operative Report Operative Report: DATE: 11/21/2021 SURGERY: Upper endoscopy. SURGEON: Joanna Story M.D. PROCEDURE: EGD with biopsy PRE OP DX: morbid obesity, GERD POST OP DX: morbid obesity, GERD TYPE OF ANESTHESIA: MAC. ESTIMATED BLOOD LOSS: None. COMPLICATIONS: None. SPECIMENS REMOVED: antral biopsy FINDINGS: 1. Small hiatal hernia. 2. antral gastritis INDICATIONS:INDICATION FOR PROCEDURE: Patient is a 51-year-old female with a long history of morbid obesity. She is planned to have a weight loss procedure and is here for preoperative planning EGD. PROCEDURE DETAILS: After consent was reviewed, patient was taken back to the operating room where patient was placed in the left lateral decubitus position and a bite block was placed in the mouth. After a time-out was called, MAC anesthesia was initiated. I then passed the endoscope into her oropharynx, into her esophagus, visualized the entire esophagus, which was all within normal limits. Z-line was noted to about 40cm from incisors. I then visualized the stomach and the first portion of the duodenum and there were no abnormalities I could clearly visualize except for antral gastritis. A cold forceps biopsy of the antrum was taken and will be sent to pathology to evaluate for H.pylori. I then retroflexed the scope in the stomach and visualized the hiatus and I could see a small hiatal hernia. I then desufflated the stomach and removed the endoscope. Patient tolerated procedure well and was transferred to recovery room in good and stable condition.
[2021-11-21] MEDS ORDERED: SUCRALFATE 1 GM/10 ML ORAL LIQD PO STA (10:40)
[2021-11-21 15:42] VITALS: BP 135/65
--- NOTE | 2021-11-21 15:50 | Post Anesthesia Evaluation ---
- Post Anesthesia Evaluation Patient Participated: Yes Airway Patent: Yes Stable Respiratory Function: Yes Nausea/Vomiting: No Temp > 96.8F: Yes Pain Manageable: Yes Adequeate Hydration: Yes Anesthesia Complications: No Block Receding Appropriately: Not Applicable Patient on Ventilator: No
== END 2021-11-21 11:30 | disposition home or self-care (01) ==
LOC: GIO 07:18
PROVIDERS: ATTEND Surgery
DX: E66.01 Morbid (severe) obesity due to excess calories (principal); K21.9 Gastro-esophageal reflux disease without esophagitis; K29.50 Unspecified chronic gastritis without bleeding; K44.9 Diaphragmatic hernia without obstruction or gangrene; K31.89 Other diseases of stomach and duodenum; J45.909 Unspecified asthma, uncomplicated; G47.30 Sleep apnea, unspecified; M19.90 Unspecified osteoarthritis, unspecified site; F41.9 Anxiety disorder, unspecified; Z79.899 Other long term (current) drug therapy; Z98.890 Other specified postprocedural states
CPT/HCPCS: 43239; 88305; 88342; J2704; J7030; J7120; Q0162

== ENCOUNTER 2022-01-31 18:31 | Emergency (ER) | payer MEDICAID ==
[2022-01-31 19:42] VITALS: BP 128/64
[2022-01-31] MEDS ORDERED: IBUPROFEN 600 MG TAB PO ONE (21:58)
--- NOTE | 2022-01-31 21:59 | Emergency Department Report ---
ED Extremity Problem HPI - General Chief complaint: Extremity Injury, Upper Stated complaint: RT THUMB PAIN Time Seen by Provider: 01/31/22 21:53 Source: patient Mode of arrival: Ambulatory Limitations: No Limitations - History of Present Illness Initial comments: 52 year old female presents to ED with complaints of right thumb pain. Patient states that her symptoms started 1 day ago. She states she had been cleaning out her turtle tank without any gloves and after cleaning tank she noticed she started to have pain to distal right thumb. She does not recall injurying the thumb. She states pain has been shooting into the rest of her thumb and reports difficulty moving the thumb due to pain. She reports swelling to thumb. She denies any bleeding or drainage. She is left hand dominant. MD Complaint: joint swelling, joint paint -: days(s) (1) - Related Data Previous Rx's Medication Instructions Recorded Last Taken Type methOCARBAMOL [Robaxin TAB] 500 mg PO BID PRN #14 tab 03/14/21 Unknown Rx Furosemide [Lasix] 20 mg PO QDAY 5 Days #5 tablet 05/22/21 Unknown Rx Meclizine [Antivert] 25 mg PO TID PRN #20 tablet 08/31/21 Unknown Rx hydrOXYzine PAMOATE [Vistaril] 25 mg PO Q6HR PRN #10 capsule 08/31/21 Unknown Rx Ibuprofen [Motrin] 600 mg PO Q8H PRN #30 tablet 01/31/22 Unknown Rx cephALEXin [Keflex] 500 mg PO Q6HR #40 capsule 01/31/22 Unknown Rx Allergies Allergy/AdvReac Type Severity Reaction Status Date / Time chocolate flavor AdvReac Rash Verified 01/31/22 19:50 ED Review of Systems ROS: Stated complaint: RT THUMB PAIN Other details as noted in HPI Comment: All other systems reviewed and negative Constitutional: denies: chills, fever Respiratory: denies: cough, shortness of breath, SOB with exertion, SOB at rest, wheezing Cardiovascular: denies: chest pain, palpitations, dyspnea on exertion, orthopnea, edema, syncope, paroxysmal nocturnal dyspnea Musculoskeletal: joint swelling, arthralgia Skin: denies: rash, lesions, change in color, change in hair/nails, pruritus Neurological: denies: numbness, paresthesias, confusion, abnormal gait Psychiatric: denies: anxiety, depression Hematological/Lymphatic: denies: easy bleeding, easy bruising ED Past Medical Hx - Past Medical History Previous Medical History?: Yes Hx Hypertension: No Hx CVA: Yes (memory loss) Hx Sickle Cell Disease: No Hx Arthritis: Yes Hx Psychiatric Treatment: No (Hx of anxiety with Rx (ran out)) Hx Asthma: Yes Additional medical history: pacemaker, sleep apnea, anxiety (been admitted to psych facilities), neuropathy - Surgical History Past Surgical History?: Yes Hx Pacemaker: Yes Additional Surgical History: GB, hyst, - Social History Smoking Status: Never Smoker Substance Use Type: None - Medications Home Medications: Home Medications Medication Instructions Recorded Confirmed Last Taken Type methOCARBAMOL [Robaxin TAB] 500 mg PO BID PRN #14 tab 03/14/21 Unknown Rx Furosemide [Lasix] 20 mg PO QDAY 5 Days #5 tablet 05/22/21 Unknown Rx Meclizine [Antivert] 25 mg PO TID PRN #20 tablet 08/31/21 Unknown Rx hydrOXYzine PAMOATE [Vistaril] 25 mg PO Q6HR PRN #10 capsule 08/31/21 Unknown Rx Ibuprofen [Motrin] 600 mg PO Q8H PRN #30 tablet 01/31/22 Unknown Rx cephALEXin [Keflex] 500 mg PO Q6HR #40 capsule 01/31/22 Unknown Rx ED Physical Exam - General Limitations: No Limitations General appearance: alert, in no apparent distress - Head Head exam: Present: atraumatic, normocephalic, normal inspection - Eye Eye exam: Present: normal appearance, PERRL, EOMI Pupils: Present: normal accommodation - Neck Neck exam: Present: normal inspection, full ROM. Absent: meningismus - Respiratory Respiratory exam: Present: normal lung sounds bilaterally. Absent: respiratory distress, wheezes, rales, rhonchi, stridor - Cardiovascular Cardiovascular Exam: Present: regular rate, normal rhythm, normal heart sounds - Expanded Upper Extremity Exam Right Hand Wrist exam: Present: tenderness (mod ttp mainly along posterior nail fold with mild swelling and slight erythema noted. No induration or fluctuance noted. No nail avulsion. No streaking cellulitis or signs of tenosynovitis. There is pain with flex/ext of IP joint) Vascular: Present: normal capillary refill, radial pulse (normal ). Absent: vascular compromise - Neurological Exam Neurological exam: Present: alert, oriented X3, CN II-XII intact, normal gait - Psychiatric Psychiatric exam: Present: normal affect, normal mood - Skin Skin exam: Present: intact ED Course Vital Signs 01/31/22 19:41 Temperature 100.4 F H Pulse Rate 72 Respiratory 18 Rate Blood Pressure 128/64 O2 Sat by Pulse 98 Oximetry ED Medical Decision Making - Radiology Data Radiology results: report reviewed Patient: BETTE WOODARD MR#: [id number] : 1970 Acct:[id number] Age/Sex: 52 / F ADM Date: 01/31/22 Loc: ED Attending Dr: Ordering Physician: DAISHA FELDER Date of Service: 01/31/22 Procedure(s): XR finger(s) 2+V RT Accession Number(s): [id number] cc: DAISHA FELDER Fluoro Time In Minutes: RIGHT THUMB 3 VIEW(S) INDICATION / CLINICAL INFORMATION: right thumb pain COMPARISON: None available. FINDINGS: BONES / JOINT(S): No acute fracture or subluxation. No significant arthritis. SOFT TISSUES: No significant abnormality. ADDITIONAL FINDINGS: None. IMPRESSION: 1. No acute findings. Signer Name: Sundar Mitchell MD Signed: 01/31/2022 10:30 PM Workstation Name: [id number] Transcribed By: DT Dictated By: Сергей Mitchell MD Electronically Authenticated By: Сергей Mitchell MD Signed Date/Time: 01/31/222229 DD/DT: - Medical Decision Making 52 year old female presents to ED with complaints of right thumb pain. Patient states that her symptoms started 1 day ago. She states she had been cleaning out her turtle tank without any gloves and after cleaning tank she noticed she started to have pain to distal right thumb. She does not recall injurying the thumb. She states pain has been shooting into the rest of her thumb and reports difficulty moving the thumb due to pain. She reports swelling to thumb. She denies any bleeding or drainage. She is left hand dominant. 2238: X-ray of the thumb shows no acute abnormalities. Physical exam concerning for early paronychia versus mild cellulitis with distal aspect of the left thumb. There is no streaking. No significant lymphangitis or any evidence of infectious tenosynovitis. Patient does have a fever, and she was given a dose of ibuprofen here in the ER. I do not suspect sepsis. She is not toxic or ill- appearing. At this time there is no indication for labs or any IV antibiotics. Patient will be started on oral antibiotics and given medication for pain. Patient instructed to return if worse. Patient was stable at time of discharge. Critical care attestation.: If time is entered above; I have spent that time in minutes in the direct care of this critically ill patient, excluding procedure time. ED Disposition Clinical Impression: Cellulitis, finger Disposition: HOME / SELF CARE / HOMELESS Is pt being admited?: No Does the pt Need Aspirin: No Condition: Stable Instructions: Cellulitis, Adult, Paronychia, [id number] Additional Instructions: I recommend that you take the keflex as prescribed and to completion. Take the motrin for pain. Follow up with PCP. Return to ED if worse. Prescriptions: cephALEXin [Keflex] 500 mg PO Q6HR #40 capsule Ibuprofen [Motrin] 600 mg PO Q8H PRN #30 tablet PRN Reason: Pain Referrals: PRIMARY CARE, [Primary Care Provider] - 3-5 Days Time of Disposition: 22:38
--- NOTE | 2022-01-31 22:35 | XRay Report ---
RIGHT THUMB 3 VIEW(S) INDICATION / CLINICAL INFORMATION: right thumb pain COMPARISON: None available. FINDINGS: BONES / JOINT(S): No acute fracture or subluxation. No significant arthritis. SOFT TISSUES: No significant abnormality. ADDITIONAL FINDINGS: None. IMPRESSION: 1. No acute findings. Signer Name: Sundar Mitchell MD Signed: 01/31/2022 10:30 PM Workstation Name: [id number]
== END 2022-01-31 22:49 | disposition home or self-care (01) ==
LOC: ED 18:31
DX: L03.011 Cellulitis of right finger (principal); Z86.73 Personal history of transient ischemic attack (TIA), and cerebral infarction without residual deficits; M19.90 Unspecified osteoarthritis, unspecified site; J45.909 Unspecified asthma, uncomplicated; Z79.899 Other long term (current) drug therapy; Z98.890 Other specified postprocedural states; Z91.02 Food additives allergy status
CPT/HCPCS: 99283

== ENCOUNTER 2022-02-03 03:34 | Emergency (ER) | payer MEDICAID ==
[2022-02-03] MEDS ORDERED: HYDROcodone/ACETAMINOPHEN 5-325 MG TAB PO ONE (04:47)
[2022-02-03] MEDS ORDERED: ONDANSETRON 4 MG ODT TAB PO ONE (04:47)
[2022-02-03] MEDS ORDERED: LIDOCAINE (1%) 10 MG/1 ML VIAL 20 ML MDV INFILTRATI ONE (04:47)
--- NOTE | 2022-02-03 04:51 | Emergency Department Report ---
ED General Adult HPI - General Chief complaint: Skin/Abscess/Foreign Body Stated complaint: MEDICATION NOT WORKING Source: patient Mode of arrival: Ambulatory Limitations: No Limitations - History of Present Illness Initial comments: Patient is a 52-year-old -[place] female with a history of CVA, chronic osteoarthritis, anxiety, cardiomyopathy status post pacemaker, sleep apnea and chronic neuropathy who presents to the ED with complaint of acute onset persistent painful swollen dorsal right rash for the last 1 week. Patient states that she was initially evaluated in this ED about 4 days ago and given a prescription of Keflex 500 mg to be taken every 6 hours and ibuprofen. Patient states that in the last 2 days the pain and swelling have worsened and she decid ed come to the ED for evaluation. Patient denies dizziness, syncope, fever, chills, nausea, vomiting, numbness and tingling or weakness of right hand. MD Complaint: Dorsal right thumb swollen painful rash -: Sudden, week(s) (1) Location: upper extremity (Right thumb) Radiation: non-radiation Severity scale (0 -10): 8 Quality: aching, sharp Consistency: constant Improves with: none Worsens with: movement Associated Symptoms: denies other symptoms, rash (Swollen, painful rash on dorsal right arm). denies: confusion, chest pain, cough, diaphoresis, fever/chills, headaches, loss of appetite, malaise, nausea/vomiting, seizure, shortness of breath, syncope, weakness Treatments Prior to Arrival: NSAID, other (Antibiotics) - Related Data Previous Rx's Medication Instructions Recorded Last Taken Type methOCARBAMOL [Robaxin TAB] 500 mg PO BID PRN #14 tab 03/14/21 Unknown Rx Furosemide [Lasix] 20 mg PO QDAY 5 Days #5 tablet 05/22/21 Unknown Rx Meclizine [Antivert] 25 mg PO TID PRN #20 tablet 08/31/21 Unknown Rx hydrOXYzine PAMOATE [Vistaril] 25 mg PO Q6HR PRN #10 capsule 08/31/21 Unknown Rx Ibuprofen [Motrin] 600 mg PO Q8H PRN #30 tablet 01/31/22 Unknown Rx cephALEXin [Keflex] 500 mg PO Q6HR #40 capsule 01/31/22 Unknown Rx traMADoL [Ultram] 50 mg PO Q6HR PRN #12 tablet 02/03/22 Unknown Rx Allergies Allergy/AdvReac Type Severity Reaction Status Date / Time chocolate flavor AdvReac Rash Verified 01/31/22 19:50 ED Review of Systems ROS: Stated complaint: MEDICATION NOT WORKING Other details as noted in HPI Constitutional: denies: chills, fever Eyes: denies: eye pain, eye discharge, vision change ENT: denies: ear pain, throat pain Respiratory: denies: cough, shortness of breath, wheezing Cardiovascular: denies: chest pain, palpitations Endocrine: no symptoms reported Gastrointestinal: denies: abdominal pain, nausea, diarrhea Genitourinary: denies: urgency, dysuria, discharge Musculoskeletal: joint swelling, arthralgia (Swollen, painful dorsal right thumb due to erythematous maculopapular rash). denies: back pain Skin: rash (Swollen, painful erythematous maculopapular rash on dorsal right thumb), change in color. denies: lesions Neurological: denies: headache, weakness, paresthesias Psychiatric: denies: anxiety, depression Hematological/Lymphatic: denies: easy bleeding, easy bruising ED Past Medical Hx - Past Medical History Hx Hypertension: No Hx CVA: Yes (memory loss) Hx Sickle Cell Disease: No Hx Arthritis: Yes Hx Psychiatric Treatment: No (Hx of anxiety with Rx (ran out)) Hx Asthma: Yes Additional medical history: pacemaker, sleep apnea, anxiety (been admitted to psych facilities), neuropathy - Surgical History Hx Pacemaker: Yes Additional Surgical History: GB, hyst, - Social History Smoking Status: Never Smoker Substance Use Type: None - Medications Home Medications: Home Medications Medication Instructions Recorded Confirmed Last Taken Type methOCARBAMOL [Robaxin TAB] 500 mg PO BID PRN #14 tab 03/14/21 Unknown Rx Furosemide [Lasix] 20 mg PO QDAY 5 Days #5 tablet 05/22/21 Unknown Rx Meclizine [Antivert] 25 mg PO TID PRN #20 tablet 08/31/21 Unknown Rx hydrOXYzine PAMOATE [Vistaril] 25 mg PO Q6HR PRN #10 capsule 08/31/21 Unknown Rx Ibuprofen [Motrin] 600 mg PO Q8H PRN #30 tablet 01/31/22 Unknown Rx cephALEXin [Keflex] 500 mg PO Q6HR #40 capsule 01/31/22 Unknown Rx traMADoL [Ultram] 50 mg PO Q6HR PRN #12 tablet 02/03/22 Unknown Rx ED Physical Exam - General Limitations: No Limitations General appearance: alert, in no apparent distress - Head Head exam: Present: atraumatic, normocephalic, normal inspection - Eye Eye exam: Present: normal appearance, PERRL, EOMI Pupils: Present: normal accommodation - ENT ENT exam: Present: normal exam, normal orophraynx, mucous membranes moist, TM's normal bilaterally, normal external ear exam - Neck Neck exam: Present: normal inspection, full ROM. Absent: tenderness - Respiratory Respiratory exam: Present: normal lung sounds bilaterally. Absent: respiratory distress, wheezes, rales, rhonchi, chest wall tenderness, accessory muscle use, prolonged expiratory - Cardiovascular Cardiovascular Exam: Present: regular rate, normal rhythm, normal heart sounds. Absent: systolic murmur, diastolic murmur, rubs, gallop - GI/Abdominal GI/Abdominal exam: Present: soft, normal bowel sounds. Absent: tenderness, guarding, rebound, hyperactive bowel sounds, hypoactive bowel sounds, organomegaly - Extremities Exam Extremities exam: Present: full ROM, tenderness (Swollen, tender distal dorsal right thumb due to erythematous maculopapular fluctuant rash), normal capillary refill, joint swelling. Absent: pedal edema, calf tenderness - Back Exam Back exam: Present: normal inspection, full ROM. Absent: tenderness, CVA tenderness (L), muscle spasm, paraspinal tenderness - Neurological Exam Neurological exam: Present: alert, oriented X3, CN II-XII intact, normal gait, reflexes normal - Psychiatric Psychiatric exam: Present: normal affect, normal mood - Skin Skin exam: Present: warm, dry, intact, rash (Swollen, mildly erythematous maculopapular fluctuant rash on dorsal right thumb), erythema. Absent: normal color ED Course Vital Signs 02/03/22 03:41 Temperature 98.7 F Pulse Rate 63 Respiratory 16 Rate Blood Pressure 139/82 O2 Sat by Pulse 98 Oximetry ED Medical Decision Making - Medical Decision Making This is a 52-year-old -[place] female with a history of CVA, chronic osteoarthritis, anxiety, cardiomyopathy status post pacemaker, sleep apnea and chronic neuropathy who presents to the ED with complaint of acute onset persistent painful swollen dorsal right rash for the last 1 week. Patient states that she was initially evaluated in this ED about 4 days ago and given a prescription of Keflex 500 mg to be taken every 6 hours and ibuprofen. Patient states that in the last 2 days the pain and swelling have worsened and she decided come to the ED for evaluation. In the ED, patient is alert and oriented x3 and is not in any distress. Patient was treated for pain in the ED and the dorsal right thumb was swollen fluctuant rash was incised and drained per protocol. Patient tolerated the procedure well. The wound was then dressed appropriately and the patient advised to continue taking the previously prescribed antibiotics and pain medications as needed, and to follow-up with her primary care physician in 7 to 10 days for reevaluation. Patient is advised return to the ED immediately if symptoms get worse. - Differential Diagnosis Cellulitis; paronychia; Critical care attestation.: If time is entered above; I have spent that time in minutes in the direct care of this critically ill patient, excluding procedure time. ED Disposition Clinical Impression: Acute paronychia of right thumb, Cellulitis of right thumb Disposition: HOME / SELF CARE / HOMELESS Is pt being admited?: No Does the pt Need Aspirin: No Condition: Stable Instructions: Paronychia, [id number], Cellulitis, Adult, [id number] Additional Instructions: Continue taking the previously prescribed antibiotics and pain medications with food, plenty of fluids and follow-up with your primary care physician in 7 to 10 days for reevaluation. Return to the ED immediately if symptoms get worse. Prescriptions: traMADoL [Ultram] 50 mg PO Q6HR PRN #12 tablet PRN Reason: Pain Referrals: ELIECER GUTHRIE MD [Staff Physician] - 7-10 days Time of Disposition: 04:56 Print Language: SERBIAN
[2022-02-03 05:25] VITALS: BP 142/84
== END 2022-02-03 05:54 | disposition home or self-care (01) ==
LOC: ED 03:34
DX: L03.011 Cellulitis of right finger (principal); M19.90 Unspecified osteoarthritis, unspecified site; J45.909 Unspecified asthma, uncomplicated; Z86.73 Personal history of transient ischemic attack (TIA), and cerebral infarction without residual deficits; Z98.890 Other specified postprocedural states; Z79.899 Other long term (current) drug therapy
CPT/HCPCS: 99282; J3490; Q0162